=== PATIENT | male | born 2000 | race Two or more races ===

== ENCOUNTER 2018-10-24 19:57 | Emergency (ER) | payer OTHER ==
[~2018-10-24] VITALS: Ht 162.6 cm; Wt 73.7 kg
[2018-10-24 20:27] VITALS: BP 135/57
== END 2018-10-25 00:25 | disposition left against medical advice (07) ==
LOC: ER 20:02
DX: S61.252A Open bite of right middle finger without damage to nail, initial encounter (principal); Z53.21 Procedure and treatment not carried out due to patient leaving prior to being seen by health care provider; Y04.1XXA Assault by human bite, initial encounter
CPT/HCPCS: 73130